=== PATIENT | male | born 1955 | race Caucasian/White ===

== ENCOUNTER → 2019-09-08 | Outpatient (CLI) | payer BC | END | disposition home or self-care (01) | LOC: CFH 11:53 | PROVIDERS: ATTEND Internal Medicine | DX: R05 Cough (principal); G47.33 Obstructive sleep apnea (adult) (pediatric); I10 Essential (primary) hypertension; E78.5 Hyperlipidemia, unspecified; Z90.89 Acquired absence of other organs | CPT/HCPCS: 71250 ==